=== PATIENT | male | born 1940 | race Caucasian/White ===

== ENCOUNTER 2019-11-10 03:29 | Inpatient (IN) | payer MEDICARE ==
[~2019-11-10] VITALS: Ht 167.6 cm; Wt 73.6 kg
[~2019-11-10 03:29] MED LIST: ACET325T26 PO; ALBU0.63 NEB; ASPI325T17 PO; ATOR10TA9 PO; BACL-19 PO; BISA10SU4 PR; CALC0.25 PO; CALC200T24 PO; CEFT2FRO2 IV; CHOL400T2 PO; DILT120T3 PO; DOCU100C33 PO; ENAL10TA PO; FLUT16SP24 NAS; GLIP5TAB10 PO; HYDR1TAB13 PO; HYDR25TA6 PO; HYDROCHLORIDE PO; INSU100I11 SQ-INSULIN; INSU100I13 SQ-INSULIN; LACT20SO13 PO; METF500T17 PO; MULT1TAB76 PO; TRULICITY
[2019-11-10 03:59] LABS: MEAN CORPUSCULAR HEMOGLOBIN 31.2 pg (27.5-34.5); MEAN CORPUSCULAR HGB CONC 32.2 g/dL (33.2-36.2); MEAN CORPUSCULAR VOLUME 97.1 fL (81-97); MEAN PLATELET VOLUME 6.6 fL (7.4-10.4); PLATELET COUNT 464 x10^3/uL (130-400); RED BLOOD COUNT 2.78 x10^6/uL (4.38-5.82); RED CELL DISTRIBUTION WIDTH 19.7 % (9.4-14.8)
[2019-11-10 04:12] LABS: ALANINE AMINOTRANSFERASE 40 U/L (12-78); ALBUMIN 2.9 g/dL (3.4-5.0); ANION GAP 7 mmol/L (5-15); CHLORIDE 105 mmol/L (98-107); CREATININE 4.38 mg/dL (0.7-1.3)
[2019-11-10 04:15] LABS: ALKALINE PHOSPHATASE 90 U/L (45-117); BILIRUBIN,TOTAL 0.4 mg/dL (0.2-1.0); TOTAL PROTEIN 7.2 g/dL (6.4-8.2)
[2019-11-10] MEDS ORDERED: INSU100V11 SQ (04:16)
[2019-11-10 04:17] LABS: BASOPHILS # (AUTO) 0.02 x10^3/uL (0-0.1); BASOPHILS % (AUTO) 0 % (0-1); EOSINOPHILS % (AUTO) 0 % (1-7); LYMPHOCYTES % (AUTO) 2 % (22-44); MD SCAN; MONOCYTES # (AUTO) 0.42 x10^3/uL (0.2-0.8); MONOCYTES % (AUTO) 2 % (2-9); NEUTROPHILS # (AUTO) 18.68 x10^3/uL (1.8-6.8); NEUTROPHILS % (AUTO) 96 % (42-75); TROPONIN I 0.144 ng/mL (0.000-0.045)
[2019-11-10] MEDS ORDERED: CEFEPIME 1 GM in DEXTROSE 5% 50 ML IV ONE (05:00)
[2019-11-10] MEDS ORDERED: VANCOMYCIN PER PHARMACY MC PRN ×2 (05:00→07:00)
--- NOTE | 2019-11-10 05:11 | NUR ---
PT RESTING CALMLY, MONITORS IN PLACE, IV SITE X2 STARTED BY SUP, IV ABX STARTED.
[2019-11-10] MEDS ORDERED: HEPARIN 5,000 UNITS/ML, 1ML IV ONE (05:30)
[2019-11-10] MEDS ORDERED: PLEASE ENTER ACCURATE WEIGHT MC SCH (05:30)
[2019-11-10] MEDS ORDERED: HEPARIN 25,000 UNITS/250ML PMX 250 ML ONE (05:31)
[2019-11-10] MEDS ORDERED: HEPARIN 5,000 UNITS/ML, 1ML ONE (05:32)
[2019-11-10] MEDS: HEPARIN 25,000 UNITS/250ML PMX 250 ML IV PRN (05:42)
--- NOTE | 2019-11-10 05:45 | NUR ---
PT RESTING CALMLY, NAD, DROWSY BUT AROUSES EASILY TO VERBAL RESPONSE. IV HEPARIN BOLUS AND INFUSION GIVEN, SEE MAR
[2019-11-10] MEDS ORDERED: VANCOMYCIN 1,500 MG in SODIUM CHLORIDE 0.9% 250 ML IV ONE (06:00)
[2019-11-10 06:14] VITALS: BP 130/76
[2019-11-10] MEDS ORDERED: PHARMACY MAY ADJ FOR RENAL FX MC PRN (07:00)
[2019-11-10] MEDS ORDERED: ENALAPRILAT 1.25 MG/ML, 2ML IVPush PRN (07:00)
[2019-11-10] MEDS ORDERED: DEXTROSE 50%, 50ML SYRINGE IVPush PRN (07:00)
[2019-11-10] MEDS ORDERED: LABETALOL 5MG/ML, 20ML IVPush PRN (07:00)
[2019-11-10] MEDS ORDERED: PHARMACOKINETIC MONITORING MC PRN (07:00)
[2019-11-10] MEDS ORDERED: GLUCAGON 1 MG IM PRN (07:00)
[2019-11-10] MEDS ORDERED: PROMETHAZINE 25 MG/ML, 1ML IM PRN (07:00)
[2019-11-10] MEDS ORDERED: DEXTROSE 4 GM TAB.CHEW PO PRN (07:00)
[2019-11-10] MEDS ORDERED: ONDANSETRON 2MG/ML, 2ML IVPush PRN (07:00)
[2019-11-10 07:07] VITALS: BP 111/68
[2019-11-10] MEDS: INSULIN LISPRO 100 UNITS/ML, PEN SQ-INSULIN SCH ×4 (07:28→23:34)
[2019-11-10] MEDS ORDERED: ENALAPRILAT 1.25 MG/ML, 1ML IVPush PRN (07:30)
[2019-11-10] MEDS: PIPERACILLIN/TAZO/PMX 2.25GM 50 ML IV SCH ×2 (08:42→18:10)
[2019-11-10] MEDS: SODIUM CHLORIDE FLUSH 10ML SYR IVF SCH ×2 (08:42→22:37)
[2019-11-10 10:49] LABS: TROPONIN I 0.123 ng/mL (0.000-0.045)
[2019-11-10] MEDS ORDERED: ARANESP 100 MCG/ML **ESRD SQ SCH (12:30)
[2019-11-10 13:23] VITALS: BP 101/78
[2019-11-10] MEDS: HEPARIN 5,000 UNITS/ML, 1ML IV PRN ×2 (13:29→20:46)
[2019-11-10] MEDS: ALBUTEROL SULFATE 2.5 MG/3 ML NPPB SCH ×2 (15:59→21:05)
[2019-11-10 16:23] LABS: TROPONIN I 0.142 ng/mL (0.000-0.045)
[2019-11-10 19:56] VITALS: BP 135/71
[2019-11-10 23:45] VITALS: BP 133/89
[2019-11-11 00:19] LABS: MEAN CORPUSCULAR HEMOGLOBIN 31.6 pg (27.5-34.5); MEAN CORPUSCULAR HGB CONC 32.6 g/dL (33.2-36.2); MEAN PLATELET VOLUME 6.9 fL (7.4-10.4); PLATELET COUNT 412 x10^3/uL (130-400); RED BLOOD COUNT 2.85 x10^6/uL (4.38-5.82); RED CELL DISTRIBUTION WIDTH 20.1 % (9.4-14.8)
[2019-11-11 00:29] LABS: ANION GAP 9 mmol/L (5-15); CALCIUM 8.7 mg/dL (8.5-10.1); CHLORIDE 103 mmol/L (98-107); CREATININE 3.27 mg/dL (0.7-1.3)
[2019-11-11] MEDS ORDERED: NALOXONE 0.4 MG/ML, 1ML IVPush ONE (00:30)
[2019-11-11 00:37] LABS: MD YES
[2019-11-11 00:38] LABS: LYMPH#(MANUAL) 1.09 x10^3/uL (1-3.4); LYMPHS% (MANUAL) 4 % (22-44); MONOS#(MANUAL) 0.27 x10^3/uL (0.3-2.7); MONOS% (MANUAL) 1 % (2-9); REACTIVE LYMPHS # (MANUAL) 0.27 x10^3/uL (0-0); REACTIVE LYMPHS % (MANUAL) 1 % (0-0); SEG#(MANUAL) 25.57 x10^3/uL (1.8-6.8); SEGS% (MANUAL) 94 % (42-75)
[2019-11-11 00:39] LABS: TOXIC GRAN 1+
[2019-11-11 00:40] LABS: ANISOCYTOSIS 1+
[2019-11-11 00:41] LABS: <PLATELET ESTIMATE> ADEQUATE
[2019-11-11 00:42] LABS: <PLT MORPHOLOGY> NORMAL PLT MORPH
[2019-11-11] MEDS: PIPERACILLIN/TAZO/PMX 2.25GM 50 ML IV SCH ×3 (01:06→16:27)
[2019-11-11 01:21] VITALS: BP 134/78
[2019-11-11] MEDS: HEPARIN 5,000 UNITS/ML, 1ML IV PRN ×3 (03:27→20:40)
[2019-11-11 06:52] LABS: MEAN CORPUSCULAR HGB CONC 31.8 g/dL (33.2-36.2); MEAN CORPUSCULAR VOLUME 97.4 fL (81-97); MEAN PLATELET VOLUME 6.4 fL (7.4-10.4); PLATELET COUNT 437 x10^3/uL (130-400); RED CELL DISTRIBUTION WIDTH 20.1 % (9.4-14.8)
[2019-11-11 07:01] LABS: ALANINE AMINOTRANSFERASE 29 U/L (12-78); ALBUMIN 2.5 g/dL (3.4-5.0); ANION GAP 10 mmol/L (5-15); CALCIUM 8.5 mg/dL (8.5-10.1); CHLORIDE 105 mmol/L (98-107); CREATININE 3.84 mg/dL (0.7-1.3)
[2019-11-11 07:04] LABS: ALKALINE PHOSPHATASE 82 U/L (45-117); BILIRUBIN,TOTAL 0.5 mg/dL (0.2-1.0); TOTAL PROTEIN 6.9 g/dL (6.4-8.2)
[2019-11-11 07:14] LABS: MD YES
[2019-11-11 07:15] VITALS: BP 121/70
[2019-11-11 07:15] LABS: BAND#(MANUAL) 1.64 x10^3/uL; BANDS%(MANUAL) 6 % (0-7); BASOS#(MANUAL) 0.27 x10^3/uL (0-0.1); BASOS% (MANUAL) 1 % (0-1); MONOS#(MANUAL) 0.82 x10^3/uL (0.3-2.7); MONOS% (MANUAL) 3 % (2-9)
[2019-11-11 07:16] LABS: ANISOCYTOSIS 1+; LYMPH#(MANUAL) 0.55 x10^3/uL (1-3.4); LYMPHS% (MANUAL) 2 % (22-44); SEG#(MANUAL) 24.11 x10^3/uL (1.8-6.8); SEGS% (MANUAL) 88 % (42-75); TOXIC GRAN 1+
[2019-11-11 07:17] LABS: <PLATELET ESTIMATE> INCREASED; <PLT MORPHOLOGY> NORMAL PLT MORPH
[2019-11-11] MEDS: ALBUTEROL SULFATE 2.5 MG/3 ML NPPB SCH ×3 (07:25→20:30)
[2019-11-11] MEDS: INSULIN LISPRO 100 UNITS/ML, PEN SQ-INSULIN SCH ×4 (07:51→20:41)
[2019-11-11] MEDS: HEPARIN 25,000 UNITS/250ML PMX 250 ML IV PRN (07:54)
[2019-11-11 08:01] VITALS: BP 129/71
[2019-11-11] MEDS: SODIUM CHLORIDE FLUSH 10ML SYR IVF SCH ×2 (09:17→20:41)
[2019-11-11 12:35] VITALS: BP 125/75
[2019-11-11 20:13] VITALS: BP 102/70
[2019-11-11] MEDS ORDERED: ARANESP 100 MCG/ML **ESRD SQ SCH (20:18)
[2019-11-11] MEDS ORDERED: DILTIAZEM 120 MG TABLET PO SCH (21:00)
[2019-11-11] MEDS: DILTIAZEM 5 MG/ML, 5ML IVPush SCH (22:00)
[2019-11-11] MEDS ORDERED: HALOPERIDOL 5 MG TABLET PO SCH (22:30)
[2019-11-12 00:14] VITALS: BP 109/62
[2019-11-12] MEDS: PIPERACILLIN/TAZO/PMX 2.25GM 50 ML IV SCH ×3 (00:55→20:20)
[2019-11-12] MEDS: HEPARIN 5,000 UNITS/ML, 1ML IV PRN ×4 (03:30→23:34)
[2019-11-12] MEDS: HEPARIN 25,000 UNITS/250ML PMX 250 ML IV PRN ×2 (03:55→23:29)
[2019-11-12] MEDS: ALBUTEROL SULFATE 2.5 MG/3 ML NPPB SCH ×3 (07:23→22:05)
[2019-11-12 07:35] VITALS: BP 109/58
[2019-11-12] MEDS: DILTIAZEM 5 MG/ML, 5ML IVPush SCH ×2 (07:37→20:16)
[2019-11-12] MEDS: INSULIN LISPRO 100 UNITS/ML, PEN SQ-INSULIN SCH ×4 (07:50→20:16)
[2019-11-12] MEDS: SODIUM CHLORIDE FLUSH 10ML SYR IVF SCH ×2 (09:00→20:22)
[2019-11-12 09:46] LABS: MEAN CORPUSCULAR HEMOGLOBIN 31.4 pg (27.5-34.5); MEAN CORPUSCULAR HGB CONC 32.4 g/dL (33.2-36.2); MEAN CORPUSCULAR VOLUME 97.1 fL (81-97); MEAN PLATELET VOLUME 6.6 fL (7.4-10.4); PLATELET COUNT 389 x10^3/uL (130-400); RED CELL DISTRIBUTION WIDTH 19.5 % (9.4-14.8)
[2019-11-12 09:52] LABS: ALANINE AMINOTRANSFERASE 29 U/L (12-78); ALBUMIN 2.3 g/dL (3.4-5.0); ANION GAP 11 mmol/L (5-15); CALCIUM 8.1 mg/dL (8.5-10.1); CHLORIDE 100 mmol/L (98-107); CREATININE 3.25 mg/dL (0.7-1.3)
[2019-11-12 09:54] LABS: ALKALINE PHOSPHATASE 96 U/L (45-117); BILIRUBIN,TOTAL 0.4 mg/dL (0.2-1.0); TOTAL PROTEIN 6.9 g/dL (6.4-8.2)
[2019-11-12 10:11] LABS: BASOPHILS % (AUTO) 1 % (0-1); EOSINOPHILS # (AUTO) 0.14 x10^3/uL (0-0.4); EOSINOPHILS % (AUTO) 1 % (1-7); LYMPHOCYTES # (AUTO) 0.65 x10^3/uL (1-3.4); LYMPHOCYTES % (AUTO) 4 % (22-44); MD SCAN; MONOCYTES % (AUTO) 4 % (2-9); NEUTROPHILS # (AUTO) 17.16 x10^3/uL (1.8-6.8); NEUTROPHILS % (AUTO) 91 % (42-75)
[2019-11-12 13:50] VITALS: BP 110/67
[2019-11-12] MEDS ORDERED: VANCOMYCIN 1,200 MG in SODIUM CHLORIDE 0.9% 250 ML IV ONE (15:00)
[2019-11-12 19:51] VITALS: BP 112/65
[2019-11-12] MEDS ORDERED: DILTIAZEM 5 MG/ML, 5ML IVPush ONE (23:30)
[2019-11-13 01:06] VITALS: BP 114/68
[2019-11-13] MEDS ORDERED: ALBUTEROL SULFATE 2.5 MG/3 ML NPPB SCH (03:00)
[2019-11-13] MEDS: PIPERACILLIN/TAZO/PMX 2.25GM 50 ML IV SCH ×2 (03:46→12:19)
[2019-11-13 06:04] LABS: BASOPHILS # (AUTO) 0.08 x10^3/uL (0-0.1); BASOPHILS % (AUTO) 1 % (0-1); EOSINOPHILS % (AUTO) 2 % (1-7); LYMPHOCYTES % (AUTO) 4 % (22-44); MD NO; MEAN CORPUSCULAR HEMOGLOBIN 31.4 pg (27.5-34.5); MEAN CORPUSCULAR HGB CONC 32.6 g/dL (33.2-36.2); MEAN CORPUSCULAR VOLUME 96.3 fL (81-97); MEAN PLATELET VOLUME 6.9 fL (7.4-10.4); MONOCYTES # (AUTO) 0.77 x10^3/uL (0.2-0.8); MONOCYTES % (AUTO) 6 % (2-9); NEUTROPHILS # (AUTO) 12.16 x10^3/uL (1.8-6.8); NEUTROPHILS % (AUTO) 88 % (42-75); PLATELET COUNT 381 x10^3/uL (130-400); RED BLOOD COUNT 2.63 x10^6/uL (4.38-5.82); RED CELL DISTRIBUTION WIDTH 19.1 % (9.4-14.8)
[2019-11-13 06:05] LABS: ALBUMIN 2.1 g/dL (3.4-5.0); ANION GAP 8 mmol/L (5-15); CHLORIDE 100 mmol/L (98-107)
[2019-11-13 06:08] LABS: CREATININE 5.08 mg/dL (0.7-1.3)
[2019-11-13] MEDS: HEPARIN 5,000 UNITS/ML, 1ML IV PRN (06:08)
[2019-11-13] MEDS: INSULIN LISPRO 100 UNITS/ML, PEN SQ-INSULIN SCH ×4 (07:00→21:00)
[2019-11-13] MEDS: SODIUM CHLORIDE FLUSH 10ML SYR IVF SCH ×2 (08:36→21:56)
[2019-11-13] MEDS: DILTIAZEM 5 MG/ML, 5ML IVPush SCH (08:42)
[2019-11-13 08:50] VITALS: BP 116/73
[2019-11-13 14:50] VITALS: BP 117/72
[2019-11-13] MEDS ORDERED: HYDROmorphone 1 MG/ML, 1ML INJ IV PRN (16:00)
[2019-11-13 18:45] VITALS: BP 126/74
[2019-11-13 21:43] LABS: CLOSTRIDIUM DIFFICILE ANTIGEN POSITIVE; CLOSTRIDIUM DIFFICILE TOXIN POSITIVE (Negative)
[2019-11-14] MEDS: LORazepam 2 MG/ML, 1ML IVPush PRN ×4 (05:28→19:48)
[2019-11-14] MEDS: INSULIN LISPRO 100 UNITS/ML, PEN SQ-INSULIN SCH (07:00)
[2019-11-14] MEDS: SODIUM CHLORIDE FLUSH 10ML SYR IVF SCH ×3 (09:01→19:48)
[2019-11-14] MEDS ORDERED: SCOPOLAMINE 1MG PATCH TD PRN (09:30)
[2019-11-14] MEDS ORDERED: LORazepam 2 MG/ML, 1ML IVPush PRN (09:30)
[2019-11-14] MEDS ORDERED: HYDROmorphone 1 MG/ML, 1ML INJ IV PRN (09:30)
[2019-11-14] MEDS ORDERED: ONDANSETRON 2MG/ML, 2ML IVPush PRN (09:30)
[2019-11-14] MEDS ORDERED: ATROPINE OPHTH SOLN 1%, 5ML PO PRN (09:30)
--- NOTE | 2019-11-14 11:52 | NUR ---
REC: Home with Addendum: 11/14/19 at 1152 by Aye MORA Amended: Links added. Addendum: 11/15/19 at 1035 by Aye MORA This was added for the wrong patient. Please disregard. Thank you.
[2019-11-15] MEDS: LORazepam 2 MG/ML, 1ML IVPush PRN ×3 (00:13→07:47)
[2019-11-15] MEDS: LORazepam INTENSOL 2 MG/ML PO PRN (13:34)
[2019-11-15] MEDS: morphine SULFATE ORAL.CONC 20 MG/ML PO PRN (17:23)
[2019-11-16] MEDS: LORazepam INTENSOL 2 MG/ML PO PRN ×2 (00:03→02:36)
[2019-11-16] MEDS: morphine SULFATE ORAL.CONC 20 MG/ML PO PRN ×2 (07:50→14:45)
[2019-11-16] MEDS ORDERED: MORPHINE 30MG/30ML PCA.SYR IV PRN (17:00)
[2019-11-16] MEDS ORDERED: MORPHINE SULFATE 4 MG/ML, 1ML IVPush PRN (17:00)
[2019-11-16] MEDS ORDERED: SCOPOLAMINE 1MG PATCH TD SCH (17:00)
[2019-11-17] MEDS ORDERED: ARANESP 100 MCG/ML **ESRD SQ SCH (21:00)
== END 2019-11-16 22:33 | disposition expired | DRG 871 ==
LOC: ED 05:25 → EDIP 05:33 → 5SO 06:12 → 4NW 11-13 18:20
PROVIDERS: ADMIT Family Medicine; ATTEND Family Medicine
PROC: 5A1D70Z Performance of Urinary Filtration, Intermittent, Less than 6 Hours Per Day (ICD-10-PCS; principal; 2019-11-10)
PROC: 5A1D70Z Performance of Urinary Filtration, Intermittent, Less than 6 Hours Per Day (ICD-10-PCS; 2019-11-12)
DX: A41.9 Sepsis, unspecified organism (principal); J15.6 Pneumonia due to other Gram-negative bacteria; G92 Toxic encephalopathy; I21.4 Non-ST elevation (NSTEMI) myocardial infarction; I26.99 Other pulmonary embolism without acute cor pulmonale; N18.6 End stage renal disease; I13.2 Hypertensive heart and chronic kidney disease with heart failure and with stage 5 chronic kidney disease, or end stage renal disease; I82.411 Acute embolism and thrombosis of right femoral vein; J44.0 Chronic obstructive pulmonary disease with (acute) lower respiratory infection; J96.10 Chronic respiratory failure, unspecified whether with hypoxia or hypercapnia; N25.81 Secondary hyperparathyroidism of renal origin; D53.9 Nutritional anemia, unspecified; E11.22 Type 2 diabetes mellitus with diabetic chronic kidney disease; E88.09 Other disorders of plasma-protein metabolism, not elsewhere classified; F03.90 Unspecified dementia, unspecified severity, without behavioral disturbance, psychotic disturbance, mood disturbance, and anxiety; F17.200 Nicotine dependence, unspecified, uncomplicated; I50.9 Heart failure, unspecified; G89.29 Other chronic pain; M19.90 Unspecified osteoarthritis, unspecified site; Z51.5 Encounter for palliative care; Z66 Do not resuscitate; Z85.46 Personal history of malignant neoplasm of prostate; Z86.73 Personal history of transient ischemic attack (TIA), and cerebral infarction without residual deficits; Z87.442 Personal history of urinary calculi; Z92.3 Personal history of irradiation; Z99.2 Dependence on renal dialysis; Z99.81 Dependence on supplemental oxygen
CPT/HCPCS: 36415; 70450; 71045; 80048; 80053; 80069; 80202; 82306; 82962; 83605; 83735; 83880; 84100; 84443; 84484; 85025; 85379; 85520; 86705; 86706; 86803; 87040; 87324; 87340; 90935; 93005; 93970; 94640; 96365; G0378; J0692; J0882; J1644; J2270; J2310; J2543; J3370; J7613; J1815; J2060; J7050